=== PATIENT | female | born 1970 | race Caucasian/White ===

== ENCOUNTER 2018-11-05 19:20 | Emergency (ER) | payer MEDICARE, MEDICAID ==
[~2018-11-05] VITALS: Ht 165.1 cm; Wt 127.0 kg
--- NOTE | 2018-11-05 20:01 | NUR ---
URINE COLLECTED AND SENT TO LAB
[2018-11-05 20:06] LABS: BASOPHILS % (AUTO) 0.4 % (0.0-2.0); EOSINOPHILS % (AUTO) 2.8 % (0.0-6.0); HEMATOCRIT 38 % (33-45); HEMOGLOBIN 12.8 g/dL (11.5-14.8); LYMPHOCYTES # (AUTO) 2.2 /CMM (0.8-4.8); LYMPHOCYTES % (AUTO) 29.1 % (20.0-44.0); MEAN CORPUSCULAR HGB CONC 34 g/dl (31.0-36.0); MEAN CORPUSCULAR VOLUME 91 fL (82-100); MONOCYTES # (AUTO) 0.4 /CMM (0.1-1.30); MONOCYTES % (AUTO) 5.7 % (2.0-12.0); NEUTROPHILS # (AUTO) 4.6 /CMM (1.8-8.9); PLATELET COUNT (AUTO) 286 /CMM (150-450); RED BLOOD CELL COUNT(AUTO) 4.19 MIL/uL (4.0-5.2); WHITE BLOOD COUNT (AUTO) 7.4 K/uL (4.3-11.0)
[2018-11-05 20:20] LABS: CALCIUM, SERUM 8.9 mg/dL (8.5-10.1); CARBON DIOXIDE 33 mmol/L (21-32); CHLORIDE 103 mmol/L (98-107); CREATININE 0.8 mg/dL (0.6-1.3); GLUCOSE 122 mg/dL (74-106); POTASSIUM 4.8 mmol/L (3.5-5.1); SODIUM SERUM 142 mmol/L (136-145); UREA NITROGEN, BLOOD 17 mg/dL (7-18)
[2018-11-05 20:25] LABS: ALANINE AMINOTRANSFERASE 26 U/L (12-78); ALBUMIN 3.5 g/dL (3.4-5.0); ALKALINE PHOSPHATASE 63 U/L (46-116); ASPARTATE AMINOTRANSFERASE 15 U/L (15-37); BILIRUBIN,DIRECT 0.2 mg/dL (0.0-0.2); BILIRUBIN,TOTAL 0.8 mg/dL (0.2-1.0); TOTAL PROTEIN, SERUM 7.4 g/dL (6.4-8.2)
[2018-11-05 20:26] LABS: ALCOHOL, BLOOD < 3 mg/dL (0-0); SALICYLATE < 2.8 mg/dL (2.8-20.0)
--- NOTE | 2018-11-05 20:43 | NUR ---
PT BIBS. C/O "HAVING FACEPAIN" -SOB VSS AOX4. AMBULATORY.
[2018-11-05 21:21] LABS: APPEARANCE,URINE Clear (CLEAR); BILIRUBIN,URINE Negative (NEGATIVE); BLOOD, URINE Negative Ery/uL (NEGATIVE); COLOR,URINE Yellow (YELLOW); KETONES,URINE Negative (NEGATIVE); LEUKOCYTE ESTERASE ,URINE Negative (NEGATIVE); NITRITE, URINE Negative (NEGATIVE); PROTEIN,URINE Negative (NEGATIVE); UGLUCOSE Negative (NEGATIVE)
--- NOTE | 2018-11-05 23:00 | NUR ---
INFORMATION FAXED TO [facility]. AWAITING RESPONSE
--- NOTE | 2018-11-06 | NUR ---
PT ACCEPTED TO [facility].
--- NOTE | 2018-11-06 00:02 | NUR ---
ABULANCE ETA 30 MINS TO [facility]. ROOM# 106-B ACCEPTING MD DR FISH AND DR TOURE.
--- NOTE | 2018-11-06 00:10 | NUR ---
REPORT GIVEN TO NORBERTO PÉREZ.
--- NOTE | 2018-11-06 01:00 | NUR ---
ART SNATH HANDLE ASSEMBLER AT BEDSIDE EVALUATING PATIENT
--- NOTE | 2018-11-06 01:32 | NUR ---
PATIENT CLEARED BY ART HEAD MACHINE FEEDER. WILL WAIT FOR FIELD CONTACT PERSON IN THE AM AND IS CLEARED FOR DISCHARGE AFTER. MD DOWELL
--- NOTE | 2018-11-06 03:33 | NUR ---
Patient is resting comfortably in bed with eyes closed. Easily aroused. VSS
--- NOTE | 2018-11-06 05:37 | NUR ---
Patient is resting comfortably in bed with eyes closed. Easily aroused. VSS
--- NOTE | 2018-11-06 08:26 | NUR ---
Social service consult requested by Dr. Fregoso for resources and placement. Pt. is a 48 year old female who came to the emergency department yesterday. She complained of oral pain that has worsened over the past 3 months. She initially complained of suicidal ideation however as of this morning she is not suicidal. CHERYLE met with the pt. bedside. Pt. is alert and oriented x 4. Pt. appears disheveled and had a foul odor. Pt. has her walker and belongings bedside. SW inquired with the pt. if she is homeless and pt. denied being homeless. Pt. states she lives at [facility] located at [address] [place] [address], in [place]. Pt. is currently denying suicidal and homicidal ideations and visual/auditory hallucinations at this time. Pt. was evaluated by crisis team clinician in the early AM and was psychiatrically cleared by Luis, crisis gelatin plant supervisor as well. Pt. states she wants to go back to [place]. Pt. has a psychiatric diagnosis of Manic Depression and takes Depakote, Paxil and Klonopin. Pt's psychiatrist at [place] is Dr. Boss. Pt. will be provided with a TAP card to her location of choice. Pt. was also provided with the following resources: [facility], [address] [facility] [place] [id number] ; [facility], [address] [facility] ; [facility] Homeless Resource Directory which includes food stamps, transitional housing, showers and hot meals etc; Mental Health clinics such as [facility] ; [facility] ; Health clinics;[facility] and Alcohol treatment centers such as [facility], ; [facility] Substance Abuse Hotline and [facility] . Pt. was provided with breakfast. No other social service needs are requested at this time. CHERYLE updated Dr. Fregoso with pt's discharge plan.
--- NOTE | 2018-11-06 08:30 | NUR ---
PATIENT SEEN BY PATTERN ASSEMBLER. PROVIDED WITH HOMELESS REFERRALS GIVEN TO PATIENT AND PATIENT ACCEPTED HAND OUTS. WILL PROVIDE WITH TAP CARD PER PATTERN ASSEMBLER. MD AWARE. WILL CONTINUE TO MONITOR
--- NOTE | 2018-11-06 10:26 | NUR ---
Patient discharged to home in stable condition. Written and verbal after care instructions given. Patient verbalizes understanding of instruction. Tap card provided. patient had breakfast and tolerated well. clothes provided to patient. no name bad on patient on discharge
[2018-11-06 10:27] VITALS: BP 125/67
== END 2018-11-06 10:28 | disposition home or self-care (01) ==
LOC: ER 19:26
DX: F31.9 Bipolar disorder, unspecified (principal); R45.851 Suicidal ideations; R51 Headache; I10 Essential (primary) hypertension; E03.9 Hypothyroidism, unspecified; F19.10 Other psychoactive substance abuse, uncomplicated; F25.9 Schizoaffective disorder, unspecified; Z88.8 Allergy status to other drugs, medicaments and biological substances; Z88.1 Allergy status to other antibiotic agents; Z59.0 Homelessness
CPT/HCPCS: 36415; 80048; 80076; 80305; 80307; 80329; 81001; 84703; 85025; 99284; G0480; 81000-TC

== ENCOUNTER 2018-12-07 22:41 | Emergency (ER) | payer MEDICARE, MEDICAID ==
[2018-12-07 23:09] VITALS: BP 117/60
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
[2018-12-07] MEDS ORDERED: ACETAMINOPHEN ES 500 MG TABLET ONE (23:25)
[2018-12-07] MEDS ORDERED: ACETAMINOPHEN 325 MG TABLET PO ONE (23:30)
== END 2018-12-08 02:21 | disposition home or self-care (01) ==
LOC: ER 22:45
DX: M54.5 Low back pain (principal); F31.9 Bipolar disorder, unspecified; E03.9 Hypothyroidism, unspecified; I10 Essential (primary) hypertension; Z88.8 Allergy status to other drugs, medicaments and biological substances; Z88.1 Allergy status to other antibiotic agents; Z59.0 Homelessness; Y08.89XA Assault by other specified means, initial encounter; Y93.89 Activity, other specified; Y92.89 Other specified places as the place of occurrence of the external cause; Y99.8 Other external cause status
CPT/HCPCS: 72100-TC

== ENCOUNTER 2019-03-11 01:33 | Emergency (ER) | payer MEDICARE, OTHER ==
[~2019-03-11] VITALS: Ht 162.6 cm; Wt 106.6 kg
[2019-03-11 02:18] VITALS: BP 149/94
[2019-03-11] MEDS ORDERED: IBUPROFEN 600 MG TABLET PO ONE ×2 (02:30→02:49)
[2019-03-11] MEDS ORDERED: ACETAMINOPHEN ES 500 MG TABLET PO ONE (02:30)
[2019-03-11] MEDS ORDERED: ACETAMINOPHEN ES 500 MG TABLET ONE (02:49)
--- NOTE | 2019-03-11 06:42 | NUR ---
PT WAS D/C'D IN TO HER BROTHER'S HOUSE IN STABLE CONDITION. PT DENIED BEING HOMELESS.
--- NOTE | 2019-03-11 06:43 | NUR ---
Patient discharged to home in stable condition. Written and verbal after care instructions given. Patient verbalizes understanding of instruction.
== END 2019-03-11 06:44 | disposition home or self-care (01) ==
LOC: ER 01:35
DX: S90.415A Abrasion, left lesser toe(s), initial encounter (principal); S90.414A Abrasion, right lesser toe(s), initial encounter; R60.0 Localized edema; I10 Essential (primary) hypertension; F32.9 Major depressive disorder, single episode, unspecified; E05.90 Thyrotoxicosis, unspecified without thyrotoxic crisis or storm; F17.200 Nicotine dependence, unspecified, uncomplicated; E66.01 Morbid (severe) obesity due to excess calories; Z68.41 Body mass index [BMI] 40.0-44.9, adult; Z59.0 Homelessness; Z88.8 Allergy status to other drugs, medicaments and biological substances; X58.XXXA Exposure to other specified factors, initial encounter; Y93.89 Activity, other specified; Y92.89 Other specified places as the place of occurrence of the external cause; Y99.8 Other external cause status

== ENCOUNTER 2019-04-25 05:39 | Emergency (ER) | payer MEDICARE, MEDICAID ==
[~2019-04-25] VITALS: Ht 157.5 cm; Wt 122.5 kg
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
--- NOTE | 2019-04-25 09:00 | NUR ---
Patient asleep arousable non distress @ this time continue to monitor
--- NOTE | 2019-04-25 12:23 | NUR ---
Patient Dc home instruction given agrees to call PMD in AM declined longterm
--- NOTE | 2019-04-25 12:53 | NUR ---
Patient DC home instruction given agrees to call pmd in 2 days ,stated her friendwill pick her up going back to previous living arrangement
[2019-04-25 12:54] VITALS: BP 120/67
== END 2019-04-25 12:55 | disposition home or self-care (01) ==
LOC: ER 05:41 → EDBD 05:41 → ER 12:55
DX: S09.8XXA Other specified injuries of head, initial encounter (principal); I10 Essential (primary) hypertension; F32.9 Major depressive disorder, single episode, unspecified; E05.90 Thyrotoxicosis, unspecified without thyrotoxic crisis or storm; Z88.8 Allergy status to other drugs, medicaments and biological substances; Y08.89XA Assault by other specified means, initial encounter; Y93.89 Activity, other specified; Y92.89 Other specified places as the place of occurrence of the external cause; Y99.8 Other external cause status
CPT/HCPCS: 70450-TC; 70480-TC

== ENCOUNTER 2019-05-21 02:20 | Emergency (ER) | payer MEDICARE, OTHER ==
[~2019-05-21] VITALS: Ht 162.6 cm; Wt 113.4 kg
[2019-05-21] MEDS ORDERED: ACETAMINOPHEN 325 MG TABLET ONE (02:56)
[2019-05-21] MEDS ORDERED: OLANZAPINE 5 MG TABLET ONE (02:56)
[2019-05-21] MEDS: OLANZAPINE 5 MG TABLET PO ONE (02:59)
[2019-05-21] MEDS: ACETAMINOPHEN 325 MG TABLET PO ONE (02:59)
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
[2019-05-21 06:22] VITALS: BP 146/85
--- NOTE | 2019-05-21 06:24 | NUR ---
Patient discharged to home in stable condition. Written and verbal after care instructions given. Patient verbalizes understanding of instruction. Pt ambulates w/ wheelchair.
== END 2019-05-21 06:24 | disposition home or self-care (01) ==
LOC: ER 02:21
DX: M79.605 Pain in left leg (principal); M79.604 Pain in right leg; I10 Essential (primary) hypertension; F32.9 Major depressive disorder, single episode, unspecified; E05.90 Thyrotoxicosis, unspecified without thyrotoxic crisis or storm; Z88.8 Allergy status to other drugs, medicaments and biological substances; Z59.0 Homelessness

== ENCOUNTER 2019-07-03 23:30 | Emergency (ER) | payer MEDICARE, OTHER ==
[~2019-07-03] VITALS: Ht 162.6 cm; Wt 113.4 kg
[2019-07-03 23:30] VITALS: BP 141/93
[2019-07-03] MEDS ORDERED: ACETAMINOPHEN ES 500 MG TABLET ONE (23:46)
[2019-07-04] MEDS ORDERED: ACETAMINOPHEN 325 MG TABLET PO ONE
--- NOTE | 2019-07-04 00:06 | NUR ---
PT AMBULATED WITH STEADY GAIT. WALKER WAS NOT NEEDED.
== END 2019-07-04 00:58 | disposition home or self-care (01) ==
LOC: ER 23:32
DX: G89.29 Other chronic pain (principal); M79.605 Pain in left leg; M79.604 Pain in right leg; I10 Essential (primary) hypertension; F31.9 Bipolar disorder, unspecified; E78.5 Hyperlipidemia, unspecified; Z88.8 Allergy status to other drugs, medicaments and biological substances; Z59.0 Homelessness

== ENCOUNTER 2020-04-11 04:51 | Emergency (ER) | payer MEDICARE, OTHER ==
[~2020-04-11] VITALS: Ht 162.6 cm; Wt 113.4 kg
[2020-04-11 05:01] VITALS: BP 142/82
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
== END 2020-04-11 06:34 | disposition home or self-care (01) ==
LOC: ER 04:55
DX: M79.18 Myalgia, other site (principal); M54.2 Cervicalgia; M79.641 Pain in right hand; M79.642 Pain in left hand; I10 Essential (primary) hypertension; E78.5 Hyperlipidemia, unspecified; F31.9 Bipolar disorder, unspecified; Z59.0 Homelessness; Z88.8 Allergy status to other drugs, medicaments and biological substances

== ENCOUNTER 2020-06-09 00:05 | Emergency (ER) | payer MEDICARE, OTHER ==
[~2020-06-09] VITALS: Ht 162.6 cm; Wt 113.4 kg
[2020-06-09 00:05] VITALS: BP 128/103
[2020-06-09] MEDS ORDERED: IBUPROFEN 400 MG TABLET ONE (00:16)
[2020-06-09] MEDS: IBUPROFEN 400 MG TABLET PO ONE (00:50)
--- NOTE | 2020-06-09 00:50 | NUR ---
Patient discharged to home in stable condition. Written and verbal after care instructions given. Patient verbalizes understanding of instruction.
--- NOTE | 2020-06-09 00:50 | NUR ---
patient ambulatory with a steady gait.
== END 2020-06-09 00:51 | disposition home or self-care (01) ==
LOC: ER 00:10
DX: M79.631 Pain in right forearm (principal); I10 Essential (primary) hypertension; F31.9 Bipolar disorder, unspecified; E78.5 Hyperlipidemia, unspecified; Z88.8 Allergy status to other drugs, medicaments and biological substances; Z59.0 Homelessness
CPT/HCPCS: 73090-TC

== ENCOUNTER 2020-10-09 20:30 | Emergency (ER) | payer MEDICARE, MEDICAID ==
[~2020-10-09] VITALS: Ht 165.1 cm; Wt 90.7 kg
[2020-10-09 20:51] VITALS: BP 121/76
--- NOTE | 2020-10-09 21:15 | NUR ---
pt refused to be seen by md and left the ER. made aware
== END 2020-10-09 21:15 | disposition left against medical advice (07) ==
LOC: ER 20:34
DX: Z53.21 Procedure and treatment not carried out due to patient leaving prior to being seen by health care provider (principal); M79.601 Pain in right arm; I10 Essential (primary) hypertension; F32.9 Major depressive disorder, single episode, unspecified; E05.90 Thyrotoxicosis, unspecified without thyrotoxic crisis or storm; Z88.8 Allergy status to other drugs, medicaments and biological substances; Z59.0 Homelessness